=== PATIENT | female | born 1990 | race Caucasian/White ===

== ENCOUNTER → 2017-03-31 | Outpatient (CLI) | payer BC | END | disposition home or self-care (01) | LOC: C.PAPS 13:46 | PROVIDERS: ATTEND Obstetrics & Gynecology | DX: Z01.419 Encounter for gynecological examination (general) (routine) without abnormal findings (principal); R85.612 Low grade squamous intraepithelial lesion on cytologic smear of anus (LGSIL) ==

== ENCOUNTER → 2017-04-27 | Outpatient (CLI) | payer BC ==
[2017-05-01 00:44] LABS: URCREATININE 125.8 MG/DL (>/= 20)
== END | disposition home or self-care (01) ==
LOC: C.LAB1850 12:30
PROVIDERS: ATTEND Internal Medicine
DX: Z02.89 Encounter for other administrative examinations (principal)

== ENCOUNTER → 2018-04-12 | Outpatient (CLI) | payer BC | END | disposition home or self-care (01) | LOC: C.PAPS 14:12 | PROVIDERS: ATTEND Obstetrics & Gynecology | DX: Z01.411 Encounter for gynecological examination (general) (routine) with abnormal findings (principal); Z11.51 Encounter for screening for human papillomavirus (HPV); R87.610 Atypical squamous cells of undetermined significance on cytologic smear of cervix (ASC-US) ==

== ENCOUNTER → 2018-04-12 | Outpatient (CLI) | payer BC ==
[2018-04-12 12:17] LABS: BASO % 0.2 %; BASO ABS # 0.02 K/uL (0-0.2); EOS % 1.2 %; EOS ABS # 0.11 K/uL (0-0.5); HEMATOCRIT 41.1 % (37-47); IG# 0.05 K/uL (0.00-0.02); LYMPH % 30.1 %; LYMPH ABS # 2.87 K/uL (1.2-3.4); MEAN CELL VOLUME 88.8 fL (80-100); MEAN CORPUSCULAR HEMOGLOBIN 30.2 pg (25-34); MEAN CORPUSCULAR HGB CONC 34.1 g/dl (32-36); MEAN PLATELET VOLUME 12.1 fL (7.4-10.4); MONO % 7.6 %; MONO ABS # 0.73 K/uL (0.11-0.59); NEUT % 60.4 %; NEUT ABS # 5.77 K/uL (1.4-6.5); PLATELET COUNT 276 K/uL (130-400); RED CELL DISTRIBUTION WIDTH CV 13.1 % (11.5-14.5); RED CELL DISTRIBUTION WIDTH SD 42.4 fL (36.4-46.3); WHITE BLOOD COUNT 9.55 K/uL (4.8-10.8)
== END | disposition home or self-care (01) ==
LOC: C.LAB1850 10:28
PROVIDERS: ATTEND Obstetrics & Gynecology
DX: O99.119 Other diseases of the blood and blood-forming organs and certain disorders involving the immune mechanism complicating pregnancy, unspecified trimester (principal); Z3A.00 Weeks of gestation of pregnancy not specified; D68.51 Activated protein C resistance

== ENCOUNTER → 2018-04-27 | Outpatient (CLI) | payer BC ==
[2018-04-27 09:51] LABS: HEMATOCRIT 41.6 % (37-47); MEAN CELL VOLUME 89.7 fL (80-100); MEAN CORPUSCULAR HEMOGLOBIN 30.2 pg (25-34); MEAN CORPUSCULAR HGB CONC 33.7 g/dl (32-36); MEAN PLATELET VOLUME 12.1 fL (7.4-10.4); PLATELET COUNT 248 K/uL (130-400); RED CELL DISTRIBUTION WIDTH CV 13.3 % (11.5-14.5); RED CELL DISTRIBUTION WIDTH SD 43.7 fL (36.4-46.3); WHITE BLOOD COUNT 9.09 K/uL (4.8-10.8)
[2018-04-27 10:44] LABS: ALBUMIN 3.8 gm/dl (3.4-5.0); ALKALINE PHOSPHATASE 41 U/L (45-117); ALT/SGPT 18 U/L (12-78); AST/SGOT 11 U/L (15-37); BLOOD UREA NITROGEN 12 mg/dl (7-18); CALCIUM 9.1 mg/dl (8.5-10.1); CARBON DIOXIDE 24 mmol/L (21-32); CHOLESTEROL 176 mg/dl (0-200); GLUCOSE 77 mg/dl (70-99); LDL CHOLESTEROL CALCULATED 70 mg/dl; POTASSIUM 4.3 mmol/L (3.5-5.1); SODIUM 137 mmol/L (136-145); TOTAL PROTEIN 7.3 gm/dl (6.4-8.2)
== END | disposition home or self-care (01) ==
LOC: C.LAB1850 08:46
PROVIDERS: ATTEND Internal Medicine
DX: Z00.00 Encounter for general adult medical examination without abnormal findings (principal); F41.9 Anxiety disorder, unspecified

== ENCOUNTER 2021-06-13 04:30 | Inpatient (IN) ==
[2021-06-13] MEDS ORDERED: OXYTOCIN 30 UNITS/500 ML BAG IV PRN ×3 (05:06→12:11)
--- NOTE | 2021-06-13 05:18 | History & Physical Report ---
Date of Service June 13, 2021 Assessment & Plan (1) Spontaneous rupture of amniotic membranes: Plan: 30-year-old -0-1-1 at 37 weeks and 5 days of gestation presenting with spontaneous rupture of membranes at term, Vital signs stable afebrile, GBS negative, heart rate reassuring, In early labor, Plan to admit, monitor, labs, Discussed induction of labor at term with spontaneous rupture of membranes to decrease latency and risk of intraamniotic infection, patient desires to think about it and then decide. Continue to monitor closely, Anticipate . (2) Factor V Leiden mutation: History of Present Illness Primary Care Provider: Evgeny Nogueira MD Patient is a 30-year-old -0-1-1 at 37 weeks and 5 days of gestation who woke up this morning around 2 AM and had a big gush of fluid leakage and has been trickling since then. It was clear and had no blood. She started to have contractions around 3:30 AM and they have been every 7 minutes and each contractions more painful. She reports good movements. Her has been uncomplicated except, 1) factor V mutation, heterogenous, never had DVT, f/h of DVT, on Aspirin 2) Renal agenesis of fetus, 1 kidney 3) Migraines 4) h/o depression, off meds, doing well GBS negative No COVID Symptoms Allergies Allergy/AdvReac Type Severity Reaction Status Date / Time No Known Allergies Allergy Verified 09/12/20 14:08 Home Medications Medication Instructions Recorded Confirmed Type sertraline 50 mg tablet 75 mg PO DAILY #45 tab 05/09/20 09/12/20 Rx meclizine 25 mg tablet 25 mg PO TID PRN #30 tab 06/20/20 09/12/20 Rx fluconazole 150 mg tablet 150 mg PO .weekly #2 tab 08/21/20 09/12/20 Rx (Diflucan) acetaminophen 300 mg-codeine 30 mg 1 tab PO Q8H PRN #10 tab 09/12/20 09/12/20 Rx tablet Patient History Medical History Abscess Right Thigh Anxiety ASCUS (atypical squamous cells of undetermined significance) on gynecologic Papanicolaou smear complicating , antepartum The patient will have a colposcopy ASCUS with positive high risk HPV cervical Benzodiazepine contract exists Rae infection Depression Depression with anxiety Encounter for pre-operative examination Factor 5 Leiden mutation, heterozygous The patient is unsure if hetero or homozygous Factor V Leiden mutation History of blood clots Insomnia 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 Migraine Panic attacks PROM (premature rupture of membranes) Spontaneous vaginal delivery Vaginal burning Surgical History History of oral surgery [place] teeth extracted Family History Mother Anxiety Drug abuse Crohn's disease Depression Grandfather Heart disease Diabetes Hypertension Myocardial infarction Denies family history of Ovarian cancer Prostate cancer Breast cancer Colorectal cancer Social History Smoking Status: Never smoker Second Hand Exposure: No; Hx Alcohol Use: No Hx Substance Use: No Preferred Language: Vietnamese Communication Ability: Effective Visual Impairment: No Limitations Hearing Ability: Normal 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 Beliefs That Will Affect Care: None marital status: Current Living Situation: Spouse Current Living Situation Comment: Lives with spouse and son current occupational status: employed 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 Feels Safe at Home: Yes Childhood Exposure to Second-Hand Smoke: Yes caffeine: Yes (coffee) Dental Care, Regularly: No Physical Activity Frequency: 1-2 Times per Week Seatbelt Use: always Sunscreen Use: No Assistive Devices: None OB History Full-term on 2018 [employer] ASSIST[employer] History Denies any history of STDs, no herpes, chlamydia, gonorrhea Review of Systems as per Subjective / HPI Physical Exam Constitutional: well developed and well nourished NAD Gastrointestinal (Abdomen): Inspection/Auscultation: abdomen normal to inspection and + abdomen distended (Gravid) Genitourinary: normal external appearance OB Exam Abdomen: + vertex Manual OB Exam: + cervical dilation 3 cm, + cervical effacement 70% and + station -2 OB Exam Monitor Tracing: + external uterine monitor used, + category I and + normal FHT variability Amnisure + Results & Data ([facility]) Vital Signs (Past 12 Hours) Vital Signs Pulse BP 06/13/21 04:47 94 H 119/85 Code Status & VTE Plan VTE Prophylaxis Plan VTE Prophylaxis will be ordered: Yes
[2021-06-13 05:26] LABS: Hematocrit (blood only) 35.1 % (37-47); Hemoglobin 11.6 g/dL (12.0-16.0); Mean Corpuscular Hemoglobin 28.6 pg (25-34); Mean Corpuscular Volume 86.5 fL (80-100); Mean Platelet Volume 12.4 fL (7.4-10.4); Platelet Count 186 K/uL (130-400); RDW Coefficient of Variation 14.1 % (11.5-14.5); RDW Standard Deviation 44.1 fL (36.4-46.3); Red Blood Count 4.06 M/uL (4.2-5.4); White Blood Count 10.22 K/uL (4.8-10.8)
[2021-06-13] MEDS ORDERED: BUTORPHANOL TARTRATE 1 MG/ML VIAL IV PRN (07:28)
[2021-06-13] MEDS: LACTATED RINGER'S 1,000 ML IV PRN ×2 (07:54→10:23)
--- NOTE | 2021-06-13 08:54 | History & Physical Report ---
Date of Service June 13, 2021 Assessment & Plan (1) Spontaneous rupture of amniotic membranes: Plan: 30-year-old -0-1-1 at 37 weeks and 5 days of gestation presenting with spontaneous rupture of membranes at term, Vital signs stable afebrile, GBS negative, heart rate reassuring, In early labor, Plan to admit, monitor, labs, Discussed induction of labor at term with spontaneous rupture of membranes to decrease latency and risk of intraamniotic infection, patient desires to think about it and then decide. Continue to monitor closely, Anticipate . (2) Factor V Leiden mutation: Admission and Anticipated Discharge Date Admission Date: June 13, 2021 History of Present Illness Chief Complaint: hypertension Primary Care Provider: Evgeny Nogueira MD Allergies Allergy/AdvReac Type Severity Reaction Status Date / Time No Known Allergies Allergy Verified 09/12/20 14:08 Home Medications Medication Instructions Recorded Confirmed Type aspirin 81 mg chewable tablet 81 mg PO DAILY 06/13/21 06/13/21 History (Aspirin Childrens) vits no.124-ferrous fum 1 tab PO DAILY 06/13/21 06/13/21 History 27 mg iron-folic acid 800 mcg tablet ( Vitamin) Patient History Medical History Abscess Right Thigh Anxiety ASCUS (atypical squamous cells of undetermined significance) on gynecologic Papanicolaou smear complicating , antepartum The patient will have a colposcopy ASCUS with positive high risk HPV cervical Benzodiazepine contract exists Rae infection Depression Depression with anxiety Encounter for pre-operative examination Factor 5 Leiden mutation, heterozygous The patient is unsure if hetero or homozygous Factor V Leiden mutation History of blood clots Insomnia 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 Migraine Panic attacks PROM (premature rupture of membranes) Spontaneous vaginal delivery Vaginal burning Surgical History History of oral surgery [place] teeth extracted Family History Mother Anxiety Drug abuse Crohn's disease Depression Grandfather Heart disease Diabetes Hypertension Myocardial infarction Denies family history of Ovarian cancer Prostate cancer Breast cancer Colorectal cancer Social History Smoking Status: Never smoker Second Hand Exposure: Yes (Pt educated about secound hand smoke); Do You Dip or Chew Tobacco: No; Hx Alcohol Use: No Hx Substance Use: No Preferred Language: Estonian Communication Ability: Effective Communication Ability Comment: Pt wears contacts Visual Impairment: No Limitations Hearing Ability: Normal Home Health Clinical Supervisor Required: No Beliefs That Will Affect Care: None marital status: Current Living Situation: Family Current Living Situation Comment: Lives with spouse and son current occupational status: 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) Vital Signs (Past 12 Hours) Vital Signs Temp Pulse Resp BP 06/13/21 08:05 75 131/80 06/13/21 07:05 36.8 C 76 121/78 06/13/21 04:55 36.9 C 94 H 18 119/85 06/13/21 04:50 36.9 C 18 06/13/21 04:47 94 H 119/85 Code Status & VTE Plan VTE Prophylaxis Plan VTE Prophylaxis will be ordered: Yes
[2021-06-13] MEDS ORDERED: SODIUM CHLORIDE 0.9% INJ 10 ML VIAL ONE (09:38)
[2021-06-13] MEDS ORDERED: fentaNYL citrate 100 MCG/2 ML VIAL ONE (09:39)
[2021-06-13] MEDS ORDERED: BUPIVACAINE 0.25% 30 ML VIAL ONE (09:39)
[2021-06-13] MEDS ORDERED: fentaNYL 2MCG/ML ROPIVACAINE 1.25MG/ML 100 ML BAG EPI ONE (09:40)
[2021-06-13] MEDS ORDERED: ePHEDrine sulfate 50 MG/ML AMP ONE (09:44)
--- NOTE | 2021-06-13 10:06 | Anesthesiology Consultation ---
Date of Service June 13, 2021 Assessment & Plan (1) Encounter for pre-operative examination: Chart Review Chart Review: Acceptable Risk for Labor Epidural Consults Requested none ASA ASA2 Proposed Anesthesia Anesthesia Type: Labor Epidural Risk / Benefits Reviewed With: PT / POA / Parent / Guardian, Accepts Plan and Informed Consent Obtained History Height/Weight Height: 5 ft 5 in Weight: 83.915 kg Allergies Allergy/AdvReac Type Severity Reaction Status Date / Time No Known Allergies Allergy Verified 09/12/20 14:08 Medications Home Medications Medication Instructions Recorded Confirmed Last Taken aspirin 81 mg chewable tablet 81 mg PO DAILY 06/13/21 06/13/21 06/12/21 12:00 (Aspirin Childrens) vits no.124-ferrous fum 1 tab PO DAILY 06/13/21 06/13/21 06/12/21 12:00 27 mg iron-folic acid 800 mcg tablet ( Vitamin) Active Medications Generic Name Dose Route Start Last Admin Trade Name Freq PRN Reason Stop Dose Admin Butorphanol Tartrate 1 mg 06/13/21 07:28 06/13/21 07:57 Butorphanol Tartrate 1 Mg/Ml Vial IV 07/13/21 07:27 1 mg Q2R PRN Administration Pain Lactated Ringer's 1,000 mls @ 125 mls/hr 06/13/21 05:06 06/13/21 09:35 Lr IV 06/15/21 05:05 999 mls/hr .Q8H PRN Infusion L&D Protocol Protocol Oxytocin 30 units in 500 mls @ 8 mls/hr 06/13/21 05:38 06/13/21 09:26 Pitocin IV 06/15/21 05:37 0.48 units/hr .Q24H PRN 8 mls/hr Labor Induction/Augmentation Titration Protocol 0.48 UNITS/HR Past Medical History Medical History Abscess Right Thigh Anxiety ASCUS (atypical squamous cells of undetermined significance) on gynecologic Papanicolaou smear complicating , antepartum The patient will have a colposcopy ASCUS with positive high risk HPV cervical Benzodiazepine contract exists Rae infection Depression Depression with anxiety Encounter for pre-operative examination Factor 5 Leiden mutation, heterozygous The patient is unsure if hetero or homozygous Factor V Leiden mutation History of blood clots Insomnia 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 Migraine Panic attacks PROM (premature rupture of membranes) Spontaneous vaginal delivery Vaginal burning Exercise / Class Metabolic Activity II 4-5 Yardwork/Stairs/Walk up hill Past Family History Family History Mother Anxiety Drug abuse Crohn's disease Depression Grandfather Heart disease Diabetes Hypertension Myocardial infarction Denies family history of Ovarian cancer Prostate cancer Breast cancer Colorectal cancer Past Surgical History Surgical History History of oral surgery [place] teeth extracted Past Anesthesia History No Hx of Anesthesia Complications and No Family Hx of Anesthesia Complications History of PONV No Hx of PONV and No Hx of Motion Sickness Social History Smoking Status: Never smoker Do You Dip or Chew Tobacco: No Hx Alcohol Use: No Hx Substance Use: No substance use type: does not use Physical Exam Vital Signs Last Vital Signs Temp 98.2 F 06/13/21 07:05 Pulse 84 06/13/21 09:59 Resp 18 06/13/21 04:55 BP 132/84 06/13/21 08:57 Pulse Ox 100 06/13/21 09:59 ENMT Mouth: no dentition abnormality Thyromental Distance: > or= 3.5 Finger Breadths Mallampati Class: II Neck normal visual inspection Respiratory normal respiratory effort Auscultation: lungs clear to auscultation bilaterally Cardiovascular Rate/Rhythm: regular rate and regular rhythm Testing Laboratory Results 06/13/21 05:15
[2021-06-13] MEDS ORDERED: fentaNYL 2MCG/ML ROPIVACAINE 1.25MG/ML 100 ML BAG EPI PRN (10:07)
[2021-06-13] MEDS ORDERED: NALOXONE HCL 0.4 MG/1 ML VIAL/CARP IV PRN (10:07)
[2021-06-13] MEDS ORDERED: ePHEDrine sulfate 50 MG/ML AMP IV PRN (10:07)
[2021-06-13] MEDS ORDERED: NALOXONE HCL 1 MG in SODIUM CHLORIDE 0.9% 1000ML 1,000 ML IV PRN (10:07)
[2021-06-13] MEDS ORDERED: ONDANSETRON INJ 2 MG/ML 2 ML VIAL IV PRN (10:07)
[2021-06-13] MEDS ORDERED: NALBUPHINE HCL INJ 10 MG/ML AMP IV PRN (10:07)
[2021-06-13] MEDS ORDERED: diphenhydrAMINE 50 MG/ML VIAL IV PRN (10:07)
--- NOTE | 2021-06-13 12:09 | Delivery Summary ---
Vaginal Delivery Summary Date of Service June 13, 2021 Vaginal Delivery Summary Delivery Note live male NORMA over intact perineum with loose nuchal cord x1 reduced at delivery of head. De;layed cord clamping followed by cord blood and spontaneous delivery of intact. placenta. No tears. EBL 100 ml. Final sponge and instrument count are correct. Mom and baby stable.
[2021-06-13] MEDS ORDERED: ACETAMINOPHEN 325 MG TAB PO PRN (12:11)
[2021-06-13] MEDS ORDERED: HYDROCORTISONE ACETATE 25 MG SUPP PR PRN (12:11)
[2021-06-13] MEDS ORDERED: bisacodyL 10 MG SUPP PR PRN (12:11)
[2021-06-13] MEDS ORDERED: SUPERCREAM 0.870% 15 GM JAR EXT PRN (12:11)
[2021-06-13] MEDS ORDERED: DIPHTHERIA/TETANUS/PERTUSSIS 0.5 ML SYR/VIAL IM ONE (12:11)
[2021-06-13] MEDS ORDERED: BENZOCAINE 20% AER SPR 82.5 GM CAN EXT PRN (12:11)
--- NOTE | 2021-06-13 12:48 | Anesthesia Procedure Note ---
Date of Service June 13, 2021 Anesthesia Post Epidural Note Vital Signs Vital Signs: Temp Pulse Resp BP Pulse Ox 98.1 F 88 20 137/70 100 06/13/21 10:47 06/13/21 12:07 06/13/21 10:47 06/13/21 12:07 06/13/21 11:56 Notes Mental Status: alert / awake / arousable and participated in evaluation Nausea / Vomiting: adequately controlled Pain: adequately controlled Airway Patency, RR, SpO2: stable & adequate BP & HR: stable & adequate Hydration State: stable & adequate Neuraxial Anesthesia: was administered and sensory block is resolving Anesthetic Complications: no major complications apparent and Pt Satisfied with anesthetic care Epidural: Removed without complications and With tip intact
[2021-06-13] MEDS ORDERED: SERTRALINE HCL 50 MG TABLET PO ONE (13:00)
[2021-06-13] MEDS: IBUPROFEN 600 MG TAB PO PRN (21:42)
[2021-06-13] MEDS: DOCUSATE SODIUM 100 MG CAP PO SCH (21:42)
[2021-06-14 05:04] VITALS: O2SAT 97
[2021-06-14 06:09] LABS: Hematocrit (blood only) 34.1 % (37-47); Hemoglobin 11.3 g/dL (12.0-16.0); Mean Corpuscular Hemoglobin 28.8 pg (25-34); Mean Corpuscular Hgb Conc 33.1 g/dL (32-36); Mean Corpuscular Volume 86.8 fL (80-100); Mean Platelet Volume 12.7 fL (7.4-10.4); Platelet Count 167 K/uL (130-400); RDW Coefficient of Variation 14.2 % (11.5-14.5); RDW Standard Deviation 44.4 fL (36.4-46.3); Red Blood Count 3.93 M/uL (4.2-5.4)
[2021-06-14 06:35] LABS: Creatinine Clr Calc Pharmacy 135.8 ml/min; Est GFR (African American) 139.3 ml/min; Est GFR (Non-African American) 120.2 ml/min
[2021-06-14] MEDS ORDERED: PRENATAL VITAMIN 1 TAB PO SCH ×2 (08:00→09:00)
[2021-06-14] MEDS ORDERED: FERROUS SULFATE 325 MG TAB PO SCH (08:00)
[2021-06-14] MEDS: DOCUSATE SODIUM 100 MG CAP PO SCH (08:40)
[2021-06-14] MEDS: IBUPROFEN 600 MG TAB PO PRN (08:40)
[2021-06-14] MEDS ORDERED: ENOXAPARIN INJ 40 MG/0.4 ML SYR SQ SCH (09:00)
[2021-06-14] MEDS ORDERED: ASPIRIN 81 MG CHEW PO SCH (09:00)
--- NOTE | 2021-06-14 09:21 | Obstetrical Progress Note ---
Date of Service June 14, 2021 Subjective Ambulation: ambulating normally Voiding: no voiding problems Passing Gas:: Yes Diet Tolerance:: regular diet Lochia:: Small Feeding Type:: breast feeding doing well plans for d/c today Physical Exam Constitutional WD/WN, vitals as above comfortable abdomen soft and non-tender fundus firm no edema neg Vonnie's for d/c home Results & Data ([facility] [place]) Vital Signs (Past 12 Hours) Vital Signs Temp Pulse Resp BP Pulse Ox 06/14/21 03:35 37 C 68 16 120/81 97 06/14/21 00:10 37 C 67 16 111/73 99
[2021-06-14 12:01] VITALS: BP 116/82; PULSE 66; TEMP 97.9
[2021-06-14] MEDS ORDERED: bisacodyL 5 MG TABEC PO SCH (20:00)
== END 2021-06-14 17:30 | disposition home or self-care (01) | DRG 806 ==
LOC: OPB 04:30 → 4S1 04:34 → 4S2 14:39
DX: O69.81X0 Labor and delivery complicated by cord around neck, without compression, not applicable or unspecified; Z79.899 Other long term (current) drug therapy; Z3A.37 37 weeks gestation of pregnancy; Z86.59 Personal history of other mental and behavioral disorders; O99.13 Other diseases of the blood and blood-forming organs and certain disorders involving the immune mechanism complicating the puerperium; O42.02 Full-term premature rupture of membranes, onset of labor within 24 hours of rupture; G43.909 Migraine, unspecified, not intractable, without status migrainosus; O35.8XX0 Maternal care for other (suspected) fetal abnormality and damage, not applicable or unspecified; D68.51 Activated protein C resistance; Z37.0 Single live birth; Z77.22 Contact with and (suspected) exposure to environmental tobacco smoke (acute) (chronic); O99.354 Diseases of the nervous system complicating childbirth